=== PATIENT | male | born 2000 | race Caucasian/White ===

== ENCOUNTER 2023-10-27 14:16 | Emergency (ER) | payer SELFPAY ==
[2023-10-27] MEDS ORDERED: Erythromycin Base 0.5% Ophth Oint 3.5 gm Tube ONE (14:46)
== END 2023-10-27 14:50 | disposition home or self-care (01) ==
LOC: BURERS 14:16
DX: H01.006 Unspecified blepharitis left eye, unspecified eyelid (principal); H01.003 Unspecified blepharitis right eye, unspecified eyelid
CPT/HCPCS: 99283